=== PATIENT | female | born 1945 | race Caucasian/White ===

== ENCOUNTER 2019-11-12 15:15 | Emergency (ER) | payer MEDICARE, BC ==
[~2019-11-12] VITALS: Ht 172.7 cm; Wt 90.0 kg
[~2019-11-12 15:15] MED LIST: AMIT-189 PO; LEVO75TA PO; NITR50CA PO; PANT-47 PO
[2019-11-12 15:46] LABS: ALANINE AMINOTRANSFERASE 36 U/L (12-78); ALBUMIN 3.6 G/DL (3.4-5.0); ALBUMIN/GLOBULIN RATIO 0.9 (1.1-1.5); ALKALINE PHOSPHATASE 192 IU/L (46-116); ANION GAP 7 (8-16); ASPARTATE AMINO TRANSFERASE 30 U/L (10-37); BASOPHILS # (AUTO) 0.1 X10'3 (0-0.2); BASOPHILS % (AUTO) 1.3 % (0-1); BILIRUBIN,TOTAL 0.4 MG/DL (0.1-1.0); BLOOD UREA NITROGEN 16 MG/DL (7-18); BUN/CREATININE RATIO 13.3 (6.6-38.0); CALCIUM 8.7 MG/DL (8.5-10.1); CHLORIDE 108 MMOL/L (99-107); EOSINOPHILS # (AUTO) 0.2 X10'3 (0-0.9); EOSINOPHILS % (AUTO) 4.5 % (0-6); GLUCOSE 116 MG/DL (70-104); HEMATOCRIT 43.5 % (35.0-45.0); HEMOGLOBIN 14.4 g/dl (12.0-16.0); LYMPHOCYTES # (AUTO) 1.1 X10'3 (1.1-4.8); LYMPHOCYTES % (AUTO) 25.9 % (21-51); MEAN CORPUSCULAR HEMOGLOBIN 29.6 PG (27.0-31.0); MEAN CORPUSCULAR HGB CONC 33.2 g/dL (33.0-36.5); MEAN CORPUSCULAR VOLUME 89.1 FL (78-98); MEAN PLATELET VOLUME 8.4 FL (7.4-10.4); MONOCYTES # (AUTO) 0.3 X10'3 (0-0.9); MONOCYTES % (AUTO) 8.4 % (2-12); NEUTROPHILS # (AUTO) 2.5 X10'3 (1.8-7.7); NEUTROPHILS % (AUTO) 59.9 % (42-75); PLATELET COUNT 307 X10'3 (140-440); POTASSIUM 3.9 MMOL/L (3.5-5.1); RED BLOOD COUNT 4.88 X10'6 (4.20-5.60); RED CELL DISTRIBUTION WIDTH 14.7 % (11.5-14.5); SODIUM 144 MMOL/L (135-145); TOTAL CARBON DIOXIDE 29.4 MMOL/L (24-32); TOTAL PROTEIN 7.6 G/DL (6.4-8.2); WHITE BLOOD COUNT 4.1 X10'3 (4.5-11.0); eGFR 44 ML/MIN
[2019-11-12] MEDS ORDERED: diltiazem 5mg/ml 5ml inj. IV ONE (16:00)
[2019-11-12 16:59] VITALS: BP 162/85
== END 2019-11-12 17:00 | disposition home or self-care (01) ==
LOC: ER 15:16
DX: I48.92 Unspecified atrial flutter (principal); I48.91 Unspecified atrial fibrillation; Z79.899 Other long term (current) drug therapy
CPT/HCPCS: 36415; 71045; 80053; 83880; 84484; 85025; 85610; 93005; 96374; 99285; J3490

== ENCOUNTER 2020-05-22 09:57 | Day surgery (SDC) | payer MEDICARE, BC ==
[2020-04-27 14:49] LABS: BASOPHILS # (AUTO) 0.1 X10'3 (0-0.2); BASOPHILS % (AUTO) 1.1 % (0-1); EOSINOPHILS # (AUTO) 0.3 X10'3 (0-0.9); LYMPHOCYTES # (AUTO) 1.2 X10'3 (1.1-4.8); LYMPHOCYTES % (AUTO) 23.8 % (21-51); MEAN CORPUSCULAR HEMOGLOBIN 29.7 PG (27.0-31.0); MEAN CORPUSCULAR HGB CONC 32.9 g/dL (33.0-36.5); MEAN CORPUSCULAR VOLUME 90.1 FL (78-98); MEAN PLATELET VOLUME 8.2 FL (7.4-10.4); MONOCYTES # (AUTO) 0.6 X10'3 (0-0.9); MONOCYTES % (AUTO) 12.1 % (2-12); PRE OP HEMATOCRIT 42.3 % (35.0-45.0); PRE OP HEMOGLOBIN 13.9 g/dL (12.0-16.0); PRE OP PLATELET COUNT 272 X10'3 (140-440); RED BLOOD COUNT 4.69 X10'6 (4.20-5.60); RED CELL DISTRIBUTION WIDTH 14.7 % (11.5-14.5)
[2020-04-27 15:07] LABS: ALBUMIN 3.6 G/DL (3.4-5.0); ALKALINE PHOSPHATASE 189 IU/L (46-116); BLOOD UREA NITROGEN 16 MG/DL (7-18); BUN/CREATININE RATIO 13.6 (6.6-38.0); CALCIUM 8.9 MG/DL (8.5-10.1); CHLORIDE 107 MMOL/L (99-107); CREATININE 1.18 MG/DL (0.40-0.90); PRE OP ALT 44 U/L (30-65); PRE OP ANION GAP 7 (8-16); PRE OP AST 30 U/L (10-37); PRE OP BILIRUB, TOTAL 0.3 MG/DL (0.0-1.0); PRE OP GLUCOSE 97 MG/DL (70-104); PRE OP SODIUM 142 MMOL/L (135-145); TOTAL CARBON DIOXIDE 28.1 MMOL/L (24-32); TOTAL PROTEIN 7.3 G/DL (6.4-8.2); eGFR 45 ML/MIN
[2020-05-15 11:45] LABS: BASOPHILS % (AUTO) 0.9 % (0-1); EOSINOPHILS # (AUTO) 0.3 X10'3 (0-0.9); EOSINOPHILS % (AUTO) 6.2 % (0-6); LYMPHOCYTES % (AUTO) 21.7 % (21-51); MEAN CORPUSCULAR HEMOGLOBIN 30.2 PG (27.0-31.0); MEAN CORPUSCULAR HGB CONC 33.1 g/dL (33.0-36.5); MEAN CORPUSCULAR VOLUME 91.3 FL (78-98); MEAN PLATELET VOLUME 8.3 FL (7.4-10.4); MONOCYTES # (AUTO) 0.5 X10'3 (0-0.9); MONOCYTES % (AUTO) 10.6 % (2-12); NEUTROPHILS # (AUTO) 2.7 X10'3 (1.8-7.7); NEUTROPHILS % (AUTO) 60.6 % (42-75); PRE OP HEMOGLOBIN 13.9 g/dL (12.0-16.0); PRE OP PLATELET COUNT 265 X10'3 (140-440); RED CELL DISTRIBUTION WIDTH 14.9 % (11.5-14.5)
[2020-05-15 11:58] LABS: ALBUMIN 3.5 G/DL (3.4-5.0); ALKALINE PHOSPHATASE 170 IU/L (46-116); BLOOD UREA NITROGEN 16 MG/DL (7-18); BUN/CREATININE RATIO 14.4 (6.6-38.0); CALCIUM 8.7 MG/DL (8.5-10.1); CHLORIDE 108 MMOL/L (99-107); CREATININE 1.11 MG/DL (0.40-0.90); PRE OP ALT 39 U/L (30-65); PRE OP ANION GAP 6 (8-16); PRE OP AST 27 U/L (10-37); PRE OP BILIRUB, TOTAL 0.4 MG/DL (0.0-1.0); PRE OP GLUCOSE 88 MG/DL (70-104); PRE OP POTASSIUM 4.2 MMOL/L (3.4-5.1); PRE OP SODIUM 145 MMOL/L (135-145); TOTAL CARBON DIOXIDE 30.9 MMOL/L (24-32); TOTAL PROTEIN 7.1 G/DL (6.4-8.2); eGFR 48 ML/MIN
[~2020-05-22] VITALS: Ht 167.6 cm; Wt 97.5 kg
[~2020-05-22 09:57] MED LIST changes: +BUPIVAcaine/PF 2.5mg/ml (0.25%) 10ml vial ONE; +CHOL20004 PO; +DICL1PAT7 TD; +DILT120C19 PO; +ESTR50GE TOP; +LIDOcaine 0.5% (5mg/ml) 50ml vial ONE; -NITR50CA PO; -PANT-47 PO; +ceFAZolin 2gm in dextrose, iso 50 ML IV ONE; +famotidine 20mg tablet PO ONE; +ringers solution, lacted 1,000 ML IV SCH
[2020-05-22 10:25] VITALS: BP 113/71
[2020-05-22] MEDS ORDERED: propofol 10mg/ml 20ml vial IV ONE (12:22)
[2020-05-22] MEDS ORDERED: fentaNYL/PF 50MCG/1 ML 2ML syringe ONE (12:25)
[2020-05-22] MEDS ORDERED: BUPIVAcaine/PF 2.5mg/ml (0.25%) 10ml vial ONE (12:36)
[2020-05-22] MEDS ORDERED: midazolam 2 mg/2 ml injection ONE (12:45)
[2020-05-22 12:51] VITALS: BP 162/80
--- NOTE | 2020-05-22 12:51 | NUR ---
Received from OR via [facility] , accompanied by Anesthesiologist LAKISHA and report given by Anesthesiolgist. PATIENT WITH 20G PIV IN LEFT UE RUNNING LR AT 100. DENIES PAIN. RIGHT HAND DRESSING IS CDI.[id number]. Addendum: 05/22/20 at 1303 by Jarett Muse RN, RN Amended: Links added.
[2020-05-22 13:01] VITALS: BP 140/78
[2020-05-22 13:11] VITALS: BP 137/71
[2020-05-22 13:21] VITALS: BP 129/73
--- NOTE | 2020-05-22 13:31 | NUR ---
I HAVE REVIEWED D/C INSTRUCTIONS WITH PATIENT AND FAMILY AND THEY HAVE VERBALIZED UNDERSTANDING. PATIENT D/C HOME WITH ALL BELONGINGS AND FAMILY GAVE TRANSPORT HOME. Addendum: 05/22/20 at 1350 by Jarett Muse RN, RN Amended: Links added.
[2020-05-22] MEDS ORDERED: proCHLORperazine 10 MG/2 ml inj IV PRN (13:35)
[2020-05-22] MEDS ORDERED: acetaminophen 1,000mg/100ml IV 100 ML IV PRN (13:35)
[2020-05-22] MEDS ORDERED: morphine 2 MG/ML inj. syringe IV PRN (13:35)
[2020-05-22] MEDS ORDERED: meperidine/PF 25mg/ml syringe IV PRN ×3 (13:35)
[2020-05-22] MEDS ORDERED: morphine 4 MG/ML inj SYRINge IV PRN (13:35)
[2020-05-22] MEDS ORDERED: ondansetron/PF 4mg/2ml inj IV PRN (13:35)
[2020-05-22] MEDS ORDERED: ringers solution, lacted 1,000 ML IV SCH (13:35)
== END 2020-05-22 13:31 | disposition home or self-care (01) ==
LOC: PAS 09:57
PROVIDERS: ATTEND Orthopaedic Surgery Hand Surgery
DX: M65.311 Trigger thumb, right thumb (principal); Z20.828 Contact with and (suspected) exposure to other viral communicable diseases; E03.9 Hypothyroidism, unspecified; M18.12 Unilateral primary osteoarthritis of first carpometacarpal joint, left hand; I47.1 Supraventricular tachycardia; E66.9 Obesity, unspecified; Z68.41 Body mass index [BMI] 40.0-44.9, adult; Z79.899 Other long term (current) drug therapy; Z98.890 Other specified postprocedural states; Z96.652 Presence of left artificial knee joint; Z87.440 Personal history of urinary (tract) infections; Z88.8 Allergy status to other drugs, medicaments and biological substances; Z83.6 Family history of other diseases of the respiratory system
CPT/HCPCS: 26055; 36415; 80053; 82948; 85025; 87635; 93005; J2001; J2250; J2704; J3010; J3490; A4215; J7120

== ENCOUNTER 2024-02-15 14:59 | Outpatient (CLI) | payer MEDICARE, BC ==
[~2024-02-15 14:59] MED LIST changes: -AMIT-189 PO; +AMIT50TA15 PO; -BUPIVAcaine/PF 2.5mg/ml (0.25%) 10ml vial ONE; -LIDOcaine 0.5% (5mg/ml) 50ml vial ONE; -ceFAZolin 2gm in dextrose, iso 50 ML IV ONE; -famotidine 20mg tablet PO ONE; -ringers solution, lacted 1,000 ML IV SCH
== END 2024-02-15 23:59 | disposition home or self-care (01) ==
LOC: RAD 14:59
PROVIDERS: ATTEND Family Medicine Sports Medicine
DX: S32.038D Other fracture of third lumbar vertebra, subsequent encounter for fracture with routine healing (principal); X58.XXXD Exposure to other specified factors, subsequent encounter; M51.86 Other intervertebral disc disorders, lumbar region; M51.27 Other intervertebral disc displacement, lumbosacral region; M51.87 Other intervertebral disc disorders, lumbosacral region; M51.44 Schmorl's nodes, thoracic region
CPT/HCPCS: 72131